=== PATIENT | female | born 1955 | race Caucasian/White ===

== ENCOUNTER 2023-03-27 11:17 | Emergency (ER) | payer OTHER, SELFPAY ==
[2023-03-27 11:37] VITALS: BP 126/83; PULSE 86; RESP 16; TEMP 36.7; O2SAT 99
--- NOTE | 2023-03-27 11:38 | ED.EYEPROB ---
HPI - Eye Problem General Chief complaint: Eye Problems Stated complaint: left eye issue Time Seen by Provider: 03/27/23 11:35 Source: patient, RN notes reviewed and old records reviewed Mode of arrival: ambulatory Limitations: no limitations History of Present Illness HPI Narrative: 67-year-old female presents to the [facility] with complaints of left eye irritation, redness that started Friday. Patient reports that she thought was a stye head was treated appropriately with warm compresses. States that the irritation, redness has gotten worse over the last couple days. Tried calling primary care provider was not return Woke up this morning with eye that was loopy and crusting. No blurry vision change in vision. Patient does have a history of diabetes erythema noted to left lower lid Related Data Home Medications Medication Instructions Recorded Confirmed empagliflozin 25 mg tablet 25 mg DIRECTED 03/27/23 03/27/23 (Jardiance) isosorbide mononitrate 60 mg 60 mg PO DIRECTED 03/27/23 03/27/23 tablet,extended release 24 hr lansoprazole 30 mg capsule,delayed 30 mg DIRECTED 03/27/23 03/27/23 release levothyroxine 25 mcg tablet 25 mcg DIRECTED 03/27/23 03/27/23 potassium chloride 10 mEq 10 meq PO DIRECTED 03/27/23 03/27/23 tablet,extended release rosuvastatin 10 mg tablet 10 mg DIRECTED 03/27/23 03/27/23 Allergies Allergy/AdvReac Type Severity Reaction Status Date / Time No Known Allergies Allergy Verified 03/27/23 11:58 Review of Systems Review of Systems: All systems reviewed & are unremarkable except as noted in HPI and below Constitutional: Constitutional: Reports no additional constitutional complaints Eyes: Eyes: Reports as per HPI ENT: Reports system reviewed and no additional complaints, except as documented Cardiovascular: Cardiovascular: Reports no additional cardiovascular complaints, Denies chest pain and Denies dyspnea Respiratory: Respiratory: Reports no additional respiratory complaints, Denies chest congestion, Denies cough and Denies dyspnea Gastrointestinal: Gastrointestinal: Reports no additional gastrointestinal complaints, Denies abdominal pain, Denies nausea and Denies vomiting Musculoskeletal: Musculoskeletal: Reports no additional musculoskeletal complaints Integumentary/Breasts: Skin/Breast: Reports system reviewed and no additional complaints, except as docu Neurologic: Reports system reviewed and no additional complaints, except as documented Psychiatric: Psychiatric: Reports no additional psychiatric complaints Allergic/Immunologic: Allergic/Immunologic: Reports no additional allergic/immunologic complaints [facility] Past Medical History Medical History (Updated 03/28/23 @ 10:53 by Jovana Christiansen APRN) Diabetes High cholesterol History of thyroid disorder Comments At the time of my signature, I reviewed and agree with the nursing past medical, surgical, social, and family history. There is no relevant family history pertinent to the patient complaint. Exam Const: General: cooperative, healthy appearing, comfortable, no acute distress, well developed, alert and well nourished Nutritional Appearance: well nourished Orientation/consciousness: patient oriented x3 Limitations: no limitations HENMT: Head: normal to inspection Ears: hearing grossly normal bilaterally and external ears normal Face/Nose/Sinus: Normal external nose present, Normal nares present, Normal nasal mucous membranes and turbinates present, normal facial exam and face symmetric Face and sinus: normal facial exam and face symmetric Mouth: Yes Normal oral and palatal mucosa present, Yes lip normal and Yes moist mucous membranes Throat: posterior oropharynx normal and uvula midline Eyes: General: appearance normal, both eyes and all related structures Alignment and Position: alignment normal Periorbital: periorbital findings normal Eyelids: eyelid abnormality left lower eyelid inflame
== END 2023-03-27 12:08 | disposition home or self-care (01) ==
PROVIDERS: Emergency Provider Nurse Practitioner; PCP Internal Medicine
DX: H01.005 Unspecified blepharitis left lower eyelid (principal); E11.9 Type 2 diabetes mellitus without complications; E78.00 Pure hypercholesterolemia, unspecified; E07.9 Disorder of thyroid, unspecified; Z79.84 Long term (current) use of oral hypoglycemic drugs
CPT/HCPCS: 99203; G0463

== ENCOUNTER 2024-02-17 17:16 | Emergency (ER) | payer OTHER, SELFPAY ==
[2024-02-17 17:25] VITALS: BP 146/80; PULSE 99; RESP 18; TEMP 36.2; O2SAT 100
--- NOTE | 2024-02-17 17:25 | ED.ALLEREA ---
HPI - Allergic Reaction General Chief complaint: Allergic Reaction <Radha Roper PA-C - Last Filed: 02/18/24 09:16> Stated complaint: ALLERGIC REACTION <Radha Roper PA-C - Last Filed: 02/18/24 09:16> Time Seen by Provider: 02/17/24 17:25 <Radha Roper PA-C - Last Filed: 02/18/24 09:16> Focused HPI: This is a 68 year old female that presents to the ER for an allergic reaction. Reports itching and swelling in her face which started this morning. Reports about 20 minutes ago she started to note swelling and irritation in the back of her throat. Reports hoarseness. GENERAL: Well-appearing, well-nourished, and in no acute distress. HEAD: Normocephalic, atraumatic. ENT: Swelling of the posterior oropharynx and uvula noted CHEST: Clear to auscultation. ?No respiratory distress. HEART: Regular rate and rhythm.? NEURO: ?Alert and oriented x3. Patient screened in triage and initial orders placed.? ?Additional care and disposition to be based upon?diagnostic testing and treatment. <Radha Roper PA-C - Last Filed: 02/18/24 09:16> History of Present Illness HPI narrative: 68 yo F presenting with allergic reaction. States that yesterday she developed facial itching and swelling. Today she had some worsening facial swelling involving her forehead and around her eyes. States that her face was still itching. She then developed itchiness in her throat and states that her voice became worse. States that it felt difficult to swallow so she came in for evaluation. No wheezing or shortness of breath. No nausea or vomiting. No new foods or medications. States that she used a new soap this morning. <Mary Ramirez MD - Last Filed: 02/19/24 14:48> Related Data Home medications: Home Medications Medication Instructions Recorded Confirmed empagliflozin 25 mg tablet 25 mg DIRECTED 03/27/23 03/27/23 (Jardiance) isosorbide mononitrate 60 mg 60 mg PO DIRECTED 03/27/23 03/27/23 tablet,extended release 24 hr lansoprazole 30 mg capsule,delayed 30 mg DIRECTED 03/27/23 03/27/23 release levothyroxine 25 mcg tablet 25 mcg DIRECTED 03/27/23 03/27/23 potassium chloride 10 mEq 10 meq PO DIRECTED 03/27/23 03/27/23 tablet,extended release rosuvastatin 10 mg tablet 10 mg DIRECTED 03/27/23 03/27/23 <Radha Roper PA-C - Last Filed: 02/18/24 09:16> Allergies/adverse reactions: Allergies Allergy/AdvReac Type Severity Reaction Status Date / Time No Known Allergies Allergy Verified 02/17/24 17:19 <Radha Roper PA-C - Last Filed: 02/18/24 09:16> Review of Systems Review of Systems: All systems reviewed & are unremarkable except as noted in HPI and below <Mary Ramirez MD - Last Filed: 02/19/24 14:48> [facility] Past Medical History Medical History: Medical History Diabetes High cholesterol History of thyroid disorder <Radha Roper PA-C - Last Filed: 02/18/24 09:16> Social History Social History: Social History (Updated 02/18/24 @ 09:16 by Radha Roper PA-C) Substance use: never <Radha Roper PA-C - Last Filed: 02/18/24 09:16> Exam Narrative: GENERAL: Well-appearing, no acute distress, pleasant cooperative HEAD: Normocephalic, atraumatic. EYES: PERRLA and EOMI. ENT: Mucous membranes moist. + mild uvula edema, handling secretions without issue NECK: Supple. CHEST: Clear to auscultation. No respiratory distress. No wheezing HEART: Regular rate and rhythm ABDOMEN: Soft, nontender, nondistended EXTREMITIES: Normal range of motion. No edema. SKIN: Warm, dry NEURO: Alert and oriented x3. PSYCH: Normal mood and affect. <Mary Ramirez MD - Last Filed: 02/19/24 14:48> Course Vital Signs Vital signs: Vital Signs Temperature 97.1 F L 02/17/24 17:25 Pulse Rate 99 02/17/24 17:25 Respiratory Rate 18 02/17/24 17:25 Blood Pressu
[2024-02-17] MEDS: FAMOTIDINE 20 MG/2 ML VIAL IV PUSH (17:47)
[2024-02-17] MEDS: methylPREDNISolone SOD SUCC 125 MG VIAL IV PUSH (17:47)
[2024-02-17] MEDS: EPINEPHrine HCL INJ 1 MG/ML AMPUL 0.3 MG IM (17:47)
[2024-02-17] MEDS: diphenhydrAMINE HCl INJ 50 MG/ML VIAL 25 MG IV PUSH (17:47)
[2024-02-17 18:10] VITALS: BP 131/65; PULSE 83; RESP 15; O2SAT 94
[2024-02-17] MEDS: SODIUM CHLORIDE 0.9% IV 1,000 ML 999 ML IV CONT (18:20)
[2024-02-17 19:06] VITALS: BP 120/63; PULSE 88; RESP 20; O2SAT 97
[2024-02-17 21:12] VITALS: BP 120/82; PULSE 89; O2SAT 96
== END 2024-02-17 21:29 | disposition home or self-care (01) ==
PROVIDERS: Emergency Provider Emergency Medicine; PCP Internal Medicine
DX: T78.40XA Allergy, unspecified, initial encounter (principal); E11.9 Type 2 diabetes mellitus without complications; E78.00 Pure hypercholesterolemia, unspecified; E07.9 Disorder of thyroid, unspecified; Z79.84 Long term (current) use of oral hypoglycemic drugs; Z79.899 Other long term (current) drug therapy; X58.XXXA Exposure to other specified factors, initial encounter
CPT/HCPCS: 96361; 96372; 96374; 96375; 99284; J0171; J1200; J2919; J7030